=== PATIENT | female | born 1980 | race Caucasian/White ===

== ENCOUNTER 2017-09-12 10:09 | Emergency (ER) | payer OTHER ==
[~2017-09-12] VITALS: Ht 167.6 cm; Wt 95.3 kg
[~2017-09-12 10:09] MED LIST: ACETAMINOPHEN-1 EAC1; ACETAMINOPHEN-1 EAC1 PO; ACTIGALL300 MG PO; AMBIEN 10 MG TA10 MG PO; AMBIEN 5 MG TABL5 M1; AMBIEN 5 MG TABL5 M1 PO; AMOXICILLIN 50500 MG PO; APAP500 PO; ATIVAN0.5 MG PO; AUGMENTIN 500-1 EACH PO; AUGMENTIN 875875 MG PO; AZITHROMYCIN 2250 MG PO; BACTRIM DS TAB1 EACH PO; BARIATRIC VITAMIN; BIOTIN-D1 GM MC; BUSPAR; BUSPAR30 MG; CALTRATE-600 W1 EACH; CARAFATE 1 GM TA1 G1 PO; CARAFATE 1 GM TA1 GM PO; CARISOPRODOL 3350 MG PO; CELEXA20 MG PO; CIPRO250 M1 PO; CIPROFLOXACIN500 M1 PO; CLONAZEPAM 0.50.5 M1 PO; CLONAZEPAM 1 MG1 M1 PO; CLONAZEPAM1 MG PO; COLACE100 MG PO; CYMBALTA20 MG PO; CYMBALTA60 MG; CYMBALTA60 MG PO; DIFLUCAN200 MG PO; EFFEXOR XR75 MG; EFFEXOR XR75 MG PO; ESKALITH300 MG PO; FIORICET 50-301 EACH PO; FIORINAL CAPSUL1 CA1 PO; FLAGYL500 MG PO; FLOMAX0.4 MG PO; HALDOL 0.5 MG0.5 MG PO; HALOPERIDOL 1 MG1 MG PO; HYDROCODON-ACE1 EAC7 PO; HYDROCODONE-AP1 EAC6; HYDROCODONE-AP1 EAC6 PO; HYDROCODONE-APA1 TA1 PO; IRON325; KEFLEX500 MG PO; KEPPRA 500 MG500 MG; LIDOCAINE VISC100 ML; LITHIUM CARBON300 M3 PO; MACROBID 100 M100 M1 PO; MACROBID 100 M100 M2; METROGEL-VAGINA70 GM VG; MIRALAX17 GM PO; MULTIVITAMIN PO; MULTIVITAMINS; NEURONTIN 300300 M1; NEURONTIN 300300 M1 PO; NEURONTIN600 MG PO; NOHOMEMEDICATIONS; NORCO 5-325 TA1 EAC1 PO; NORCO 5-325 TA1 EACH PO; OMEPRAZOLE40 MG PO; ONDANSETRON HCL4 M2 PO; OTC IRON; PAXIL10 MG; PENICILLIN V P500 MG PO; PEPCID AC20 M1 PO; PEPCID20 MG PO; PERCOCET 10-321 EACH PO; PERCOCET 5-3251 EACH; PERCOCET 5-3251 EACH PO; PERCOCET PO; PHENERGAN 25 MG25 M1 PO; PRAZOSIN 1 MG CA1 M1 PO; PRAZOSIN HCL2 MG PO; PREDNISONE 20 M20 M1 PO; PRENATAL; PRILOSEC 20 MG20 MG PO; PRILOSEC40 MG; PRILOSEC40 MG PO; PYRIDIUM100 M1 PO; RISPERDAL 1 MG T1 MG PO; ROBAXIN 750 MG750 M1 PO; SLOW FE 160MG160 MG; SUPER B COMPLE1 EAC2; TRAZODONE HCL50 MG PO; ULTRAM 50MG TAB50 MG PO; URSODIOL; VALIUM5 MG PO; VICODIN 5-5001 EACH; VICODIN 5-5001 EACH PO; VITAMIN B 12; ZOFRAN; ZOFRAN ODT4 MG PO; ZOFRAN ODT4 MG SUBLING; ZOFRAN4 MG PO; ZOLOFT100 MG; ZOLPIDEM TARTRA10 MG PO
[2017-09-12 10:15] VITALS: BP 155/102
[2017-09-12] MEDS ORDERED: IRON325 PO (10:16)
[2017-09-12] MEDS ORDERED: LIDOCAINE VISC100 ML PO (10:33)
[2017-09-12] MEDS ORDERED: AMOXICILLIN 50500 MG PO (10:33)
== END 2017-09-12 10:43 | disposition home or self-care (01) ==
LOC: M.ERS 10:09
DX: K08.89 Other specified disorders of teeth and supporting structures (principal); F41.9 Anxiety disorder, unspecified; F17.210 Nicotine dependence, cigarettes, uncomplicated; F32.9 Major depressive disorder, single episode, unspecified; Z87.442 Personal history of urinary calculi; Z88.8 Allergy status to other drugs, medicaments and biological substances; Z90.49 Acquired absence of other specified parts of digestive tract; Z88.5 Allergy status to narcotic agent

== ENCOUNTER 2019-05-02 13:01 | Emergency (ER) | payer OTHER ==
[~2019-05-02] VITALS: Ht 167.6 cm; Wt 99.8 kg
[~2019-05-02 13:01] MED LIST changes: +IRON325 PO; +LIDOCAINE VISC100 ML PO
[2019-05-02] MEDS ORDERED: SEROQUEL200 MG PO (13:10)
[2019-05-02] MEDS ORDERED: TOPROL XL25 MG PO (13:10)
[2019-05-02 13:28] LABS: ABSOLUTE BASOPHILS 0.1 thou/uL (0.0-0.2); ABSOLUTE EOSINOPHILS 0.2 thou/uL (0.0-0.7); ABSOLUTE LYMPHOCYTES 2.7 thou/uL (0.8-5.3); ABSOLUTE MONOCYTES 0.5 thou/uL (0.0-1.2); ABSOLUTE NEUTROPHILS 4.1 thou/uL (1.6-8.1); BASOPHILS 1.9 %; HEMATOCRIT 43.2 % (37.0-47.0); LYMPHOCYTES 35.9 %; MCH 31.4 pg (26.0-34.0); MCHC 34.7 g/dL (28.0-37.0); MCV 90.5 fL (80.0-100.0); MONOCYTES 6.3 %; MPV 9.6 fl. (7.2-11.1); NUCLEATED RBCS 0 /100WBC; PLATELET COUNT* 188 thou/uL (150-400); POLYS 53.9 %; RBC 4.77 mil/uL (4.20-5.00); RDW-CV 13.5 % (10.5-14.5); WBC 7.5 thou/uL (4.0-11.0)
[2019-05-02 13:36] LABS: CALCIUM 9.4 mg/dL (8.5-10.1); POTASSIUM 3.7 mmol/L (3.5-5.1)
[2019-05-02 13:46] LABS: ALBUMIN 3.7 g/dL (3.4-5.0); TOTAL BILIRUBIN 0.3 mg/dL (<0.1-1.0); TOTAL PROTEIN 7.3 g/dL (6.4-8.2)
[2019-05-02 14:52] LABS: URINE BILIRUBIN NEGATIVE (Negative); URINE BLOOD NEGATIVE (Negative); URINE CLARITY CLEAR; URINE COLOR YELLOW; URINE GLUCOSE-RANDOM NEGATIVE (Negative); URINE KETONES NEGATIVE (Negative); URINE LEUKOCYTES-REFLEX NEGATIVE (Negative); URINE NITRITE-REFLEX NEGATIVE (Negative); URINE PROTEIN NEGATIVE (Negative); URINE SPECIFIC GRAVITY >= 1.030 (1.005-1.030); URINE UROBILINOGEN 0.2 E.U./dl (0.2-1.0)
[2019-05-02 15:03] LABS: AMP/METHAMP Negative (Negative); BARBITURATES Negative (Negative); BENZODIAZEPINES Negative (Negative); COCAINE Negative (Negative); METHADONE Negative (Negative); OPIATES Negative (Negative); PCP Negative (Negative); THC Negative (Negative)
[2019-05-02] MEDS ORDERED: ONDANSETRON HCL4 M2 PO (15:42)
[2019-05-02 15:58] VITALS: BP 125/85
--- NOTE | 2019-05-02 17:03 | EKG ---
[place] [address] ELECTROCARDIOGRAM REPORT Name: JEANABERNIE MIYA Room: [facility]#: [id number] Admission: 05/02/19 Attend Phys: Discharge: 05/02/19 Date of : 84 Report #: [id number] THIS REPORT FOR: //name// [facility] ED Test Date: 2019-05-02 Test Time: 13:08:39 Pat Name: BERNIE HILLS Department: Room: Gender: F Draw[employer] Operator: : 1980 Requested By: Wilma Louise Order Number: [id number] MD: Navin Weaver Measurements Intervals [place] Rate: 66 P: 3 MO: 184 QRS: -5 QRSD: 97 T: 23 QT: 417 QTc: 437 Interpretive Statements Sinus rhythm Abnormal R-wave progression, early transition Compared to ECG 09/19/2015 22:16:33 Sinus tachycardia no longer present Electronically Signed On 05-02-2019 17:03:39 CDT by Navin Weaver [email or web address] <ELECTRONICALLY SIGNED> By: Navin Weaver MD, [facility] 05/02/19 1703 1308 07 Navin Weaver MD, FACC /EPI
== END 2019-05-02 15:59 | disposition home or self-care (01) ==
LOC: M.ERS 13:01
PROVIDERS: Nurse Practitioner Family
DX: R07.9 Chest pain, unspecified (principal); R00.2 Palpitations; R11.0 Nausea; E28.2 Polycystic ovarian syndrome; N80.9 Endometriosis, unspecified; F41.9 Anxiety disorder, unspecified; F32.9 Major depressive disorder, single episode, unspecified; F17.210 Nicotine dependence, cigarettes, uncomplicated; Z98.890 Other specified postprocedural states; Z98.51 Tubal ligation status; Z90.721 Acquired absence of ovaries, unilateral; Z90.49 Acquired absence of other specified parts of digestive tract; Z87.442 Personal history of urinary calculi; Z88.6 Allergy status to analgesic agent; Z88.8 Allergy status to other drugs, medicaments and biological substances